=== PATIENT | female | born 1985 | race American Indian/Alaskan Native ===

== ENCOUNTER 2018-04-23 11:09 | Emergency (ER) | payer OTHER ==
[~2018-04-23] VITALS: Ht 165.1 cm; Wt 68.9 kg
[~2018-04-23 11:09] MED LIST: NIFE60TA3 PO; PEPCID20 MG PO; PRENATAL TABLE1 EAC4 PO
[2018-04-23] MEDS ORDERED: INTESTINEX680 M1 PO (15:30)
[2018-04-23] MEDS ORDERED: ZANTAC150 MG PO (15:30)
== END 2018-04-23 16:04 | disposition home or self-care (01) ==
LOC: ER 11:09
DX: K52.9 Noninfective gastroenteritis and colitis, unspecified (principal)

== ENCOUNTER 2019-11-30 13:52 | Emergency (ER) | payer OTHER ==
[~2019-11-30] VITALS: Ht 160 cm; Wt 67.1 kg
[~2019-11-30 13:52] MED LIST changes: +INTESTINEX680 M1 PO; +ZANTAC150 MG PO
== END 2019-11-30 23:17 | disposition home or self-care (01) ==
LOC: ER 13:52
DX: O26.892 Other specified pregnancy related conditions, second trimester (principal); K52.89 Other specified noninfective gastroenteritis and colitis; R10.2 Pelvic and perineal pain; O26.842 Uterine size-date discrepancy, second trimester; O60.02 Preterm labor without delivery, second trimester; Z34.82 Encounter for supervision of other normal pregnancy, second trimester

== ENCOUNTER 2020-05-11 11:25 | Outpatient (CLI) | payer OTHER | END 2020-05-11 12:01 | disposition home or self-care (01) | LOC: NST 11:25 | PROVIDERS: ATTEND Obstetrics & Gynecology Maternal & Fetal Medicine | DX: Z34.83 Encounter for supervision of other normal pregnancy, third trimester (principal) ==

== ENCOUNTER 2020-05-11 12:00 | Inpatient (IN) | payer OTHER ==
[~2020-05-11] VITALS: Ht 165.1 cm; Wt 80.7 kg
== END 2020-05-14 15:11 | disposition home or self-care (01) | DRG 807 ==
LOC: LDR 05-12 06:37 → SURG-SUITE 05-12 06:37 → OB/GYN 05-28 12:00
PROVIDERS: ADMIT Obstetrics & Gynecology; ATTEND Obstetrics & Gynecology
PROC: 10E0XZZ Delivery of Products of Conception, External Approach (ICD-10-PCS; principal; 2020-05-12)
PROC: 0KQM0ZZ Repair Perineum Muscle, Open Approach (ICD-10-PCS; 2020-05-12)
PROC: 4A1HXFZ Monitoring of Products of Conception, Cardiac Rhythm, External Approach (ICD-10-PCS; 2020-05-12)
PROC: 3E033VJ Introduction of Other Hormone into Peripheral Vein, Percutaneous Approach (ICD-10-PCS; 2020-05-12)
PROC: 10907ZC Drainage of Amniotic Fluid, Therapeutic from Products of Conception, Via Natural or Artificial Opening (ICD-10-PCS; 2020-05-12)
DX: O36.5930 Maternal care for other known or suspected poor fetal growth, third trimester, not applicable or unspecified (principal); Z37.0 Single live birth; O70.1 Second degree perineal laceration during delivery; Z3A.37 37 weeks gestation of pregnancy; Z20.828 Contact with and (suspected) exposure to other viral communicable diseases

== ENCOUNTER → 2021-06-04 | Emergency (ER) | payer OTHER ==
[~2021-06-04] VITALS: Ht 165.1 cm; Wt 68.0 kg
== END | disposition home or self-care (01) ==
LOC: ER 08:24
DX: R11.2 Nausea with vomiting, unspecified (principal); R19.7 Diarrhea, unspecified; Z03.818 Encounter for observation for suspected exposure to other biological agents ruled out

== ENCOUNTER 2021-10-12 17:44 | Emergency (ER) | payer OTHER ==
[~2021-10-12] VITALS: Ht 165.1 cm; Wt 66.7 kg
[2021-10-12] MEDS ORDERED: PEPCID AC20 MG PO (21:06)
== END 2021-10-12 22:26 | disposition home or self-care (01) ==
LOC: ER 17:44
DX: K29.70 Gastritis, unspecified, without bleeding (principal)

== ENCOUNTER 2025-05-15 08:24 | Emergency (ER) | payer OTHER ==
[~2025-05-15] VITALS: Ht 165.1 cm; Wt 63.5 kg
[~2025-05-15 08:24] MED LIST changes: +PEPCID AC20 MG PO
[2025-05-15] MEDS ORDERED: 0.9 % SODIUM CHLORIDE 1,000 ML IV SCH (09:45)
[2025-05-15] MEDS ORDERED: ACETAMINOPHEN WITH CODEINE 1 UDTAB TABLET PO ONE (09:45)
[2025-05-15] MEDS ORDERED: BARIUM SULFATE 450 ML ORAL.SUSP PO ONE (09:47)
[2025-05-15 10:00] LABS: BASO % 0.3 % (0.1-1.2); EOS # 0.11 (0.04-0.54); EOS % 1.5 % (0.7-7.0); LYMPH # 0.78 (1.18-3.74); LYMPH % 10.6 % (19.3-53.1); MEAN PLATELET VOLUME 12.00 fl (9.4-12.4); MONO # 0.26 (0.24-0.82); MONO % 3.5 % (4.7-12.5); NEUT # 6.14 (1.56-6.13); NEUT % 83.8 % (34.0-71.1); RED CELL DISTRIBUTION WIDTH 13.2 % (11.6-14.4)
[2025-05-15 11:10] LABS: ALT/SGPT 25.0 U/L (12-78); AST/SGOT 16.0 U/L (15-37); BILIRUBIN TOTAL 0.58 mg/dL (0.3-1.2); BUN CREA RATIO 12.0 (7.0-25.0); CREATININE SERUM 0.57 mg/dL (0.55-1.02); GFR 118.08; GLOBULINA 3.4 G/DL (2.4-3.5); GLUCOSE FASTING 83.0 mg/dL (65-100); OSMOLALITY SERUM 277.0 MOSM/KG (275-295)
[2025-05-15 11:39] LABS: URINE APPEARANCE Clear; URINE BACTERIA 133.1 uL (0.0-1933); URINE BILIRRUBIN Negative (NEGATIVE); URINE BLOOD Negative; URINE COLOR Yellow; URINE EPITHELIAL CELLS 19.6 uL (0.0-38.8); URINE GLUCOSE Negative (NEGATIVE); URINE LEUKOCYTE Negative; URINE NITRATE Negative; URINE PROTEIN Negative (NEGATIVE); URINE RBC 4.3 uL (0.0-20.8); URINE UROBILINOGEN 0.2 E.U./dl; URINE WBC 14.9 uL (0.0-23.2)
[2025-05-15 12:14] LABS: URINE CAST 0.58 uL (0.0-1.40); URINE KETONE 40 (NEGATIVE)
[2025-05-15] MEDS ORDERED: PEPTO-BISM262 MG/15 PO (19:52)
[2025-05-15] MEDS ORDERED: LEVSIN/SL0.125 MG SL (19:52)
== END 2025-05-15 20:12 | disposition home or self-care (01) ==
LOC: ER 08:24
PROVIDERS: Emergency Medicine
DX: K52.89 Other specified noninfective gastroenteritis and colitis (principal); K29.70 Gastritis, unspecified, without bleeding; J45.909 Unspecified asthma, uncomplicated; Z91.013 Allergy to seafood